=== PATIENT | female | born 1960 | race Caucasian/White ===

== ENCOUNTER 2019-08-11 16:56 | Inpatient (IN) ==
[2019-08-11] MEDS ORDERED: TYLENOL PO ONE (17:32)
--- NOTE | 2019-08-11 17:41 | EKG Report ---
Test Performed on : 08/11/2019 5:05:24 PM Test Reason : headache Blood Pressure : / mmHG Vent. Rate : 085 BPM Atrial Rate : 085 BPM P-R Int : 156 ms QRS Dur : 068 ms QT Int : 362 ms P-R-T Axes : 045 -08 013 degrees QTc Int : 430 ms Normal sinus rhythm. Low voltage QRS Borderline ECG No previous ECGs available Unconfirmed Result
--- NOTE | 2019-08-11 17:46 | PROVIDER DOCUMENTATION ---
HPI-General Adult - General Chief Complaint: Headache Stated Complaint: HEADACHE RASH Time Seen by Provider: 08/11/19 17:09 Source: patient Allergies/Adverse Reactions: Patient Allergies Allergy/AdvReac Type Severity Reaction Status Date / Time Sulfa (Sulfonamide Allergy HIVES Verified 08/11/19 17:56 Antibiotics) Home Medications: Home Medication List Medication Instructions Recorded Confirmed Last Taken Type Atenolol 1 tab PO DAILY 08/11/19 08/11/19 08/11/19 History Dulaglutide [Trulicity] 1.5 mg SQ DIRECTED 08/11/19 08/11/19 08/04/19 History Estradiol [Estrace] 1 tab PO DAILY 08/11/19 08/11/19 08/11/19 History Lisinopril/Hydrochlorothiazide 1 tab PO DAILY 08/11/19 08/11/19 08/11/19 History [Lisinopril-Hctz 10-12.5 mg Tab] Metformin [Glucophage] 1 tab PO BID 08/11/19 08/11/19 08/11/19 History - History of Present Illness -Gen Adult Nature of Presenting Problems: pt 59 yo WF w PMH including HTN, DM2, presents today with C/o severe GARCIA w intermittent dizziness x 2 weeks, pt also C/O intermittent fever with neck stiffness with rotation but not flexion, pt also c/o painful erythematous macular rash on bilateral hands onset 3 days ago. pt states GARCIA radiates from frontal area to occipital area and down through neck. pt reports palpitations and mild dyspnea last night. pt reports dizziness severe enough to cause loss of balance and fall. Location of Pain/Injury: reports: head (see hpi), hand(s) (bilater rash onset 3 days ago), other Pain Radiation: reports: neck Quality of Pain: reports: aching, sharp Severity: reports: severe (at worse severe, mild at this time) Onset/Duration: reports: other (see hpi) Timing: reports: still present, intermittent Context/Activities at Onset: reports: none, light activity Modifying Factors: improves with: analgesics (some relief with nsaids over past 2 weeks,), movement (hands worse with movment and palpation) Associated Symptoms: reports: back/neck pain, dizziness, fatigue, fever/chills, headaches, joint pain (in hands), rash (painful rash on bilat hands.), weakness Similar Symptoms Previously?: No Recently seen or treated by another doctor?: No Review of Systems - Adult - REVIEW OF SYSTEMS - ADULT Constitutional: reports: see HPI, fever, fatique Eyes: reports: see HPI, other (conjuntival injection onset today) Ears, Nose, Mouth & Throat: reports: no symptoms reported Cardiovascular: reports: irregular heart rate (had episode of palpitations last night) Respiratory: reports: no symptoms reported Gastrointestinal: reports: no symptoms reported Genitourinary: reports: no symptoms reported Musculoskeletal: reports: see HPI Integumentary: reports: see HPI Psychiatric: reports: no symptoms reported Endocrine: reports: no symptoms reported Hematologic/Lymphatic: reports: no symptoms reported Allergic/Immunologic: reports: see HPI All Other Systems: Reviewed and Negative Past History - Adult - PAST MEDICAL HISTORY-ADULT Review of Records: reports: Old Records Reviewed, Nursing Assessment Review, Me dications Reviewed Major Childhood Illnesses: reports: denies history Cardiovascular: reports: HTN Respiratory: reports: denies history Gastrointestinal: reports: denies history Musculoskeletal: reports: arthritis Neurological: reports: denies history Endocrine/Immune: reports: denies history Diabetes Type: Type 2 Diabetes controlled by:: PO Meds (and trulicity) Other Conditions: reports: denies history - FAMILY HISTORY Family History: reviewed, not pertinent - SOCIAL HISTORY Smoking: denies Substance Use: none/never Alcohol Use Frequency: never Living Situation: family Physical Exam-General - PHYSICAL EXAM-ADULT Initial Vital Signs Reviewed: Yes - CONSTITUTIONAL General Appearance: appears well, alert, mild distress - EYES Eyes: PERRL/EOMI, sclera injected. negative: EOM palsy, meningismus - HEAD, EARS, NOSE, MOUTH & THROAT HENMT: normocephalic/atraumatic, moist mucous membranes, normal ENT inspection - NECK Neck: C-spine tenderness, limited range of motion (limited rotation due to pain, no pain with flexion). 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 negative: facial droop, focal weakness, motor weakness, sensory deficit - PSYCHIATRIC Psych/Mental Status: normal mood/affect, normal thought content, normal thought process, oriented x 3 Progress - PLAN OF CARE/RESULTS Progress/Plan/Lab Results: Vital Signs - 8 hr 08/11/19 16:59 Temperature 99.4 F Pulse Rate 121 H Respiratory Rate 18 Blood Pressure 154/88 O2 Sat by Pulse Oximetry 96 Orders Category Date Time Status Saline Loc NOW Care 08/11/19 17:[address] HEAD W/O CONTRAST [CT] Stat Exams 08/11/19 17:22 Ordered BLOOD CULTURE [BLDCUL] Stat Lab 08/11/19 17:29 Uncollected CBC WITH ELECTRONIC DIFF [HEME] Stat Lab 08/11/19 17:22 Uncollected COMPREHENSIVE METABOLIC PANEL [CHEM] Stat Lab 08/11/19 17:22 Uncollected LACTATE, PLASMA [CHEM] Stat Lab 08/11/19 17:29 Uncollected PT [PROTIME WITH INR] [COAG] Stat Lab 08/11/19 17:33 Uncollected TROPONIN T Stat Lab 08/11/19 17:22 Uncollected Acetaminophen [Tylenol] Med 08/11/19 17:32 Discontinued 1,000 mg PO NOW ONE EKG [EKG] Stat Ther 08/11/19 17:06 Ordered Result Diagrams: 08/11/19 18:10 08/11/19 18:10 - REASSESSMENT Reassessment #1 Status: unchanged Reassessment #2 Time Reassessed: 21:10 Status: improving (movement of the head reveals no nuchal regidity. She is tender at the OA joint bilat) Reassessment #3 Time Reassessed: 23:48 Status: unchanged (still has neck pain) - EKG 1 Time of EKG reading by physician:: 17:05 EKG Read and Signed by:: Geoff Ernandez EKG Interpretation (*Must complete 3 of following elements*): Normal Rate: 85 Rhythm: nsr [place]: normal QRS: normal, other (low voltage QRS) [place] Interval: normal ST Wave: normal - CT/MRI 1 CT Study: Head Impression: Normal - CONSULTS/PCP/HOSPITALIST Notification #1 *Consult/PCP/Hospitalist*: Dr Soto Time Discussed: 00:25 Consult Disposition: Will see in ED - CHANGE OF SHIFT REPORT (ED Provider) 1 Report Given and Care Transferred to:: Dr jarrett Time of Transfer: 21:40 Items Pending: Other (spinal tap results) Departure - Departure Date of Disposition Decision: 08/11/19 Time of Disposition Decision: 00:26 DIAGNOSIS: Intractable headache Qualifiers: Headache type: unspecified Headache chronicity pattern: acute headache Qualified Code(s): R51 - Headache Disposition: ADMITTED INPATIENT 09 Certified Medical Emergency: Emergent Condition: Stable Referrals and Follow-Ups: Thaddeus Appiah MD [Primary Care Provider] - Discharge Education: Migraine Headache, [id number] - Critical Care Note This patient required my direct & personal management of CC.: No Attestation - Physician/ BURT Attestation Patient care was provided by Advanced Practice Provider:: Yes Advanced Practice Provider:: Jay Pal Advanced Practice Provider documentation review:: The Mid-level provider documentation, treatment plan and medical decision making was reviewed by the physician who agrees with all treatment and medical decision making by the MLP. The physician spent face to face time with patient:: Yes (report given to Dr jarrett at end of shift) Advanced Practice Provider documentation review:: Supervising physician onsite and consulted in the evaluation and care of this patient. The physician did have a face to face encounter with the patient.
[2019-08-11 18:24] LABS: BASO# 0.01 X1000 (0.0-0.2); BASO% 0.1 % (0.0-0.8); HEMATOCRIT 39.3 % (37.0-47.0); HEMOGLOBIN 13.3 g/dL (12.0-16.0); IMM GRAN# 0.05 X1000 (0.0-0.04); IMM GRAN% 0.5 % (0.0-0.5); LYMPH% 21.5 % (20.5-51.1); MCH 30.9 PG (27-31); MCHC 33.8 g/dL (33-37); MCV 91.2 FL (81-99); MONO# 1.09 X1000 (0.11-0.59); MONO% 10.6 % (1.7-9.3); MPV 10.8 FL (7.4-10.4); NEUT# 6.79 X1000 (1.4-6.5); NEUT% 66.3 % (42.2-75.2); PLT 210 X1000 (130-400); RBC 4.31 XMIL (4.2-5.4); RDW 12.4 % (11.5-14.5); WBC 10.24 X1000 (4.8-10.8)
[2019-08-11 18:35] LABS: INR 0.96; PROTIME 12.9 Seconds (11.0-16.0)
[2019-08-11 18:40] LABS: AGAP 14; ALB/GLOB RATIO 1.4; ALKALINE PHOSPHATASE 86 U/L (32-104); BUN 17 mg/dL (8-22); CALCIUM 9.3 mg/dL (8.8-10.2); CHLORIDE 96 mmol/L (98-107); COSMO 281; CREATININE 0.8 mg/dL (0.5-0.9); ESTIMATED GFR > 60; GLUCOSE 162 mg/dL (70-104); GOT 18 U/L (10-30); GPT 16 U/L (10-36); POTASSIUM 3.3 mmol/L (3.5-5.1); SODIUM 138 mmol/L (136-145); TCO2 28 mmol/L (25-35); TOTAL BILIRUBIN 0.55 mg/dL (0.20-1.00); TOTAL PROTEIN 6.8 g/dL (6.3-8.3)
--- NOTE | 2019-08-11 18:41 | Diag Imaging Result Doc PS360 ---
CT HEAD W/O CONTRAST - 08/11/2019 INDICATION: dizziness/ severe GARCIA COMPARISON: None FINDINGS: The ventricles and sulci are normal in size and contour. No intracranial mass or hemorrhage. The skull is intact. The sinuses mastoids and middle ears are clear. IMPRESSION: Negative exam. This exam was performed using automated exposure control, adjustment of mA or kV according to patient size, and/or use of iterative reconstruction technique Electronically signed by Emil Roth 08/11/2019 6:38 PM
[2019-08-11] MEDS ORDERED: KLOR-CON PO ONE (19:33)
[2019-08-11] MEDS ORDERED: XYLOCAINE-MPF 1% 10 ML ONE (21:09)
[2019-08-11] MEDS ORDERED: VERSED IV ONE (21:10)
[2019-08-11] MEDS ORDERED: XYLOCAINE 1% ONE (22:07)
[2019-08-11] MEDS ORDERED: XYLOCAINE 1% INJ ONE (22:15)
[2019-08-11] MEDS ORDERED: TORADOL IV ONE (22:16)
[2019-08-11] MEDS ORDERED: DEMEROL IV ONE (23:50)
[2019-08-12] MEDS ORDERED: NS 1,000 ML IV SCH (01:15)
[2019-08-12] MEDS ORDERED: KLOR-CON PO ONE (05:43)
--- NOTE | 2019-08-12 06:02 | HISTORY AND PHYSICAL ---
CHIEF COMPLAINT: Headaches for about 2 weeks. HISTORY OF PRESENT ILLNESS: Ms. Thu Galdamez is a 59-year-old female, who has a history of hypertension, as well as diabetes. She presented to the hospital because of headaches which she has been having for about 2 weeks. She describes the headaches as localized mainly in the yazidism region bilaterally and radiating to the occipital area. The pain is constant and usually improved with pain medication. She has had associated fever. She also describes a rash involving both upper as well as lower extremities associated with redness in both eyes. She did not have any loss of consciousness. She did have a CT scan of the brain done at the time of presentation which was unremarkable for any acute lesions. The patient has now been admitted to the floor for further management. PAST MEDICAL HISTORY: Significant for hypertension as well as diabetes. SOCIAL HISTORY: No history of cigarette smoking. No alcohol or drug use. ALLERGIES: She is allergic to sulfa. FAMILY HISTORY: Positive for diabetes. PAST SURGICAL HISTORY: She has had section, left groin hernia repair, sinus surgery, ear surgery, as well as hysterectomy. MEDICATIONS: Medications include the following. Atenolol 50 mg p.o. daily. Dulaglutide t.i.d. 1.5 mg subcu dose as directed. Estradiol 1 mg daily. Lisinopril/HCT 10/12.5 daily. Metformin 500 mg p.o. twice a day. REVIEW OF SYSTEMS: Constitutional: Has fever. GANG SAWYER: Headaches. Eyes: No blurred vision. Ears, nose, and throat: She does have some nasal discharge . Cardiovascular: Chest pain. Respiratory: No cough. GI: No nausea, vomiting, or abdominal pain. : Has dysuria. Dermatology: Has skin rash. Muscular: Has joint pains. Psychiatric: No anxiety or depression. Endocrinology: Has diabetes. No thyroid disease. Allergy/Immunology: She does have sneezing. PHYSICAL EXAMINATION: VITAL SIGNS: Temperature is 97.7 degrees, pulse 64, respiratory rate 14, blood pressure 134/74, oxygen saturation 99%. HEENT: She is atraumatic, normocephalic. Pupils are poorly reactive to light. She has evidence of conjunctival inflammation in both eyes. Extraocular movements intact. No oral lesions. NECK: No lymphadenopathy or thyromegaly. CARDIOVASCULAR: S1, S2. RESPIRATORY SYSTEM: Has evidence of good air entry bilaterally. ABDOMEN: Soft, nontender. No masses felt. EXTREMITIES: No evidence of edema. CENTRAL NERVOUS SYSTEM: No obvious focal deficits noted. DERMATOLOGY: She does have erythematous lesions, mainly involving both hands and also sparsely involving both lower extremities. DIAGNOSTIC DATA: WBC 10.24, hematocrit is 39.3 with a platelet count of 210,000. INR is 0.96. Sodium is 138, potassium 3.3, chloride is 96, bicarb 28, BUN is 7 creatinine 0.8, glucose 162. CT scan of the brain unremarkable. ASSESSMENT AND PLAN: 1. Probable viral infection. Patient presenting with headaches, fever, rash, along with conjunctivitis. Will treat symptomatically. Will also request getting a spinal tap to rule out possible meningitis and consult with Infectious Disease. 2. Diabetes mellitus. Monitor blood sugar levels. Maintain patient on sliding scale insulin. Check hemoglobin A1c. 3. Hypertension. Continue current antihypertensive regimen. 4. Hypokalemia. Replace potassium. Check magnesium level. 5. Deep vein thrombosis prophylaxis. Sequential compression devices. 6. Gastrointestinal prophylaxis. Proton pump inhibitor. cc: Lukas Soto MD MTDD
[2019-08-12] MEDS: TYLENOL PO PRN ×3 (06:16→18:54)
[2019-08-12] MEDS: NS 1,000 ML IV SCH (06:16)
[2019-08-12] MEDS: HUMULIN R SUBQ SCH ×3 (06:40→17:11)
--- NOTE | 2019-08-12 07:59 | INFECTIOUS DISEASE CONSULT REP ---
DATE: 08/12/2019 CONCLUSION: The patient was admitted to the hospital with very painful macular papular lesions involving her arms and legs. I think she may have [id number] disease caused by Coxsackie virus or an enterovirus. RECOMMENDATIONS: I would like to go ahead and have the patient get a spinal tap. It was attempted in the emergency room and no fluid was obtained. I called down to Radiology and asked for the tractor trailer technician who answered the phone to call the radiologist, Dr. Roth, non licensed operator to see if he would come in and do the spinal tap. Pending that result, I have started the patient on Valtrex. Some side effects of the medication, including renal toxicity and hematocrit toxicity, have been explained to the patient who agrees with treatment. DISCUSSION: The patient tells me approximately 2 weeks ago she started having headaches that started in the gnosticist area and then spread over the top of her head and down the back of her head and into her neck. She also had fever and chills. Approximately 5 days ago, she developed very painful erythematous macules and papules. The patient also has erythema involving the sclera and conjunctiva. She is able to see out of her eye well. LABORATORY STUDIES: Thus far show a CBC with a white count of 10,240, hemoglobin 13.3, and platelet count 210,000. Creatinine is 0.8. GFR is greater than 60. Liver function studies are normal. Blood cultures are pending. IMAGING STUDIES: The patient's CT scan of the head showed no abnormalities. PAST MEDICAL HISTORY/REVIEW OF SYSTEMS: Eyes: See present illness. Ears: The patient's hearing is good. Neck: See present illness. Respiratory: No cough or shortness of breath. Cardiac: No chest pain or palpitations. GI: No nausea, vomiting, or diarrhea. : No dysuria or flank pain. Bones, joints and muscles: Patient tells me for 8 to 10 years she has been having joint pains, primarily in the knees and hands. Neurologic: No seizures. No loss of motor or sensory function. PATENT DRAFTER: She is a 2, para 2, AB 0. She delivered both of her children by . She has had a hysterectomy. PREVIOUS HOSPITALIZATIONS AND OPERATIONS: She has had 2 C-sections, a hysterectomy, a hernia repair, sinus surgery and ear surgery. MEDICAL DISEASES: Positive for diabetes mellitus and hypertension. INFECTIOUS DISEASE HISTORY: Positive for urinary tract infection. Negative for pneumonia. SOCIAL HISTORY[place] . They do not have any pets at home. She does not smoke. She does not drink alcoholic beverages and she does not use illicit drugs. ALLERGIES: She has an allergy to sulfa, which is manifested by hives. MEDICATIONS: Patient's home medications include: Atenolol, Trulicity, Estrace, lisinopril/hydrochlorothiazide and metformin. PHYSICAL EXAMINATION: Vital Signs: Temperature is 97.7 degrees, pulse 64, respirations 14, blood pressure 135/74. The patient weighs 165 pounds. General: This is an obese, middle-aged female. She does have a lot of pain where she has her macular papular lesions. They are very painful. Head, eyes, ears, nose and throat: She can hear my spoken words and see near objects. I did not notice any erythematous areas or ulcerated areas or white patches in her mouth. Neck: No meningismus, but the patient does tell me when she has a severe headache then it causes her pain to move her neck. Lungs: Clear to auscultation. Cardiovascular: Heart rate is regular. Abdomen: Soft and nontender. Neurologic: The patient is awake. She can move her extremities. There is no tremor. Her memory as regarding her medical history is intact. Integument: The patient has tender macular papular rashes on her arms and legs. Thank you for the consult. ADDENDUM: Dr. Roth was contacted and said he would do the LP tomorrow. cc: MD MORTEZA Camacho
[2019-08-12] MEDS: PRINZIDE 10/12.5MG PO SCH (10:08)
[2019-08-12] MEDS: TENORMIN PO SCH (10:09)
[2019-08-12] MEDS: VALTREX PO SCH ×2 (10:14→17:10)
[2019-08-12] MEDS: PRILOSEC PO SCH (10:14)
--- NOTE | 2019-08-12 10:17 | Diag Imaging Result Doc PS360 ---
CHEST-2 VIEWS - 08/12/2019 INDICATION: pneumonia COMPARISON: None FINDINGS: The lungs are normally expanded and clear. Heart size and mediastinal contours are normal. No pneumothorax or pleural effusion. IMPRESSION: Negative exam. Electronically signed by Emil Roth 08/12/2019 10:14 AM
--- NOTE | 2019-08-12 13:20 | PROGRESS NOTE ---
DATE: 08/12/2019 Brief Progress Note: The patient's headache is still present, but improved. No further fevers. Still with odd rash, worse on the fingers, but some on the legs, trunk, and back. The newer lesions on the legs and trunk are pink and macular. The older lesions on the hands are more raised, and some with a little bit of central duskiness. Most of them are tender. Still some conjunctival injection, but no real drainage from the eyes. ID has seen the patient and placed her on valacyclovir. The patient is pending LP in the morning to rule out meningitis. I am not entirely sure what to make of this rash. If it worsens, may eventually need biopsy. Will monitor blood pressure and diabetes. The patient's low potassium has been repleted. Will repeat in the morning. MTDD
[2019-08-12] MEDS: ULTRAM PO PRN (20:05)
[2019-08-13] MEDS: NS 1,000 ML IV SCH ×2 (00:20→08:18)
[2019-08-13] MEDS: HUMULIN R SUBQ SCH ×5 (00:23→21:49)
[2019-08-13] MEDS: VALTREX PO SCH ×3 (00:23→18:23)
[2019-08-13] MEDS: ULTRAM PO PRN ×3 (02:12→23:01)
[2019-08-13] MEDS: PRILOSEC PO SCH (06:11)
[2019-08-13 07:44] LABS: HEMOGLOBIN A1C 6.5 % (4.8-6.0)
[2019-08-13 08:01] LABS: AGAP 13; BUN 14 mg/dL (8-22); CALCIUM 8.2 mg/dL (8.8-10.2); CHLORIDE 103 mmol/L (98-107); COSMO 280; CREATININE 0.6 mg/dL (0.5-0.9); ESTIMATED GFR > 60; GLUCOSE 171 mg/dL (70-104); POTASSIUM 3.9 mmol/L (3.5-5.1); SODIUM 138 mmol/L (136-145); TCO2 22 mmol/L (25-35)
[2019-08-13] MEDS: TENORMIN PO SCH (08:18)
[2019-08-13] MEDS: TYLENOL PO PRN (08:18)
[2019-08-13] MEDS: PRINZIDE 10/12.5MG PO SCH (08:18)
[2019-08-13 08:44] LABS: BASO# 0.02 X1000 (0.0-0.2); BASO% 0.3 % (0.0-0.8); EOS# 0.06 X1000 (0.0-0.7); EOS% 0.8 % (0.0-10.0); HEMATOCRIT 35.5 % (37.0-47.0); IMM GRAN# 0.02 X1000 (0.0-0.04); IMM GRAN% 0.3 % (0.0-0.5); LYMPH# 1.79 X1000 (1.2-3.4); LYMPH% 24.4 % (20.5-51.1); MCH 31.1 PG (27-31); MCHC 33.8 g/dL (33-37); MONO% 8.2 % (1.7-9.3); MPV 10.8 FL (7.4-10.4); NEUT# 4.84 X1000 (1.4-6.5); PLT 198 X1000 (130-400); RBC 3.86 XMIL (4.2-5.4); RDW 12.4 % (11.5-14.5); WBC 7.33 X1000 (4.8-10.8)
[2019-08-13] MEDS ORDERED: ZOFRAN IV PRN (11:12)
--- NOTE | 2019-08-13 11:46 | Diag Imaging Result Doc PS360 ---
LUMBAR PUNCT W/FLURO GUIDE - 08/13/2019 INDICATION: r/o meningitis TECHNIQUE: Total fluoroscopy time was 45 seconds. Four images were obtained. COMPARISON: None FINDINGS: Puncture was performed at L3-L4. The opening pressure was about eight. The tapped was traumatic, with a good amount of blood in the first vial. The remaining vials became progressively more clear. IMPRESSION: Successful and uncomplicated fluoroscopic guided lumbar puncture. Please note that the tap was traumatic and there is some bleeding. Electronically signed by Emil Roth 08/13/2019 11:43 AM
[2019-08-13 12:53] LABS: GLUCOSE CSF 94 mg/dL (39-75)
[2019-08-13 12:56] LABS: PROTEIN CSF 75.9 mg/dL (15-45)
[2019-08-13 14:43] LABS: APPEARANCE CLEAR; RBC BF 439 /cumm; WBC BF 32 /cumm
[2019-08-13 15:28] LABS: MONOS 91 %; POLYS 9 %
[2019-08-13] MEDS ORDERED: FIORICET PO ONE (15:34)
--- NOTE | 2019-08-13 17:11 | INFECTIOUS DISEASE PROGRESS NO ---
DATE: 08/13/2019 PRESENT ILLNESS: I think the patient has a viral infection. It could well be due to hand-foot- mouth disease which can be caused by a Coxsackie virus or an enteral virus. MEDICATIONS: The patient yesterday was started on Valtrex. PHYSICAL EXAMINATION: Vital Signs: Temperature is 98 degrees, pulse 58, respirations 16, blood pressure is 136/78. The patient states and her also states that she has gotten much better since starting the Valtrex yesterday. The patient and her both state that the erythematous macules and papules are since yesterday much smaller, much less red and much less tender. The patient states yesterday she could barely move her hands and now today she is able to move them. Head/eyes/ears/nose/throat: She can hear my spoken words and see near objects. The conjunctiva is less erythematous today. Neck: No meningismus. Lungs: Clear to auscultation. Cardiovascular: Regular heart rate. Abdomen: Soft and nontender. Integument: The patient's rash as mentioned above, is less erythematous. It is smaller in size and much less tender. Neurologic: The patient is alert. She can move her extremities. Her memory is intact. LAB AND X-RAY: The chest x-ray is clear. CBC shows a white blood cell count of 7330, hemoglobin 12, platelet count 198,000. Creatinine is 0.6, GFR is greater than 60. Today the patient had a lumbar puncture done in radiology. Some of the results of the spinal fluid are back. The white blood cell count was 32. The red blood cell count was 439. Glucose is 94 and protein is 76. Gram stain on the spinal fluid showed no bacteria. The radiologist did say in doing the spinal tap that it was a traumatic tap and blood was in the spinal fluid. ASSESSMENT AND PLAN: I think the patient definitely has a viral infection. It could well be hand- foot-mouth disease. I think since the patient's Valtrex seems to be helping her quite a bit, that I am going to continue giving her Valtrex 1 g p.o. every 8 hours. Some of the side effects of the antibiotic including the metal toxicity and renal toxicity were explained to the patient yesterday and she and her agreed with treatment with it. I think the patient tomorrow could go home and rest for a few days. 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 I have requested that the patient have a CBC and creatinine done 1 week after discharge and then have an appointment at my office 2 weeks after discharge. At the 2 week discharge also I think another CBC and creatinine should be obtained. 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 cc: Venkat Hamilton MD
--- NOTE | 2019-08-13 18:03 | PROGRESS NOTE ---
DATE: 08/13/2019 INTERVAL HISTORY: No acute events overnight. SUBJECTIVE: Ms. Galdamez is significantly feeling better. She denies any chest pain, shortness of breath, or cough. Her is at bedside. She is only complaining of some sinus congestion and drainage. We discussed about hand-foot mouth disease. We discussed about viral meningitis. We discussed about melanoma. VITALS: Currently temperature 98.1 degrees, pulse 60, respiratory rate 16, blood pressure 120/60. Saturating 100% on room air. PHYSICAL EXAMINATION: General: Not in acute distress. HEENT: Oral cavity is moist. No pharyngeal congestion. Lungs: Air entry bilaterally equal. No wheeze or rhonchi, Cardiac: S1, S2 normal. No murmur, gallop. Abdomen: Soft, nontender. Extremity: No lower extremity edema. Central Nervous System: She is alert and oriented x3. Her right ear canal examination does not have any impacted wax. Her tympanic membrane was seen with good light reflex. She does have a macular and patchy rash affecting bilateral hands, medial thigh, which is not itchy. LABORATORY DATA: CBC is unremarkable. BMP is unremarkable. Her lumbar puncture study has 32 WBC with 91% mononuclear cells. This could indicate meningeal inflammation with viruses. However, it also had 439 RBCs making interpretation difficult. Microbiology, CSF Gram stain was negative. Culture was pending. ASSESSMENT AND PLAN: 1. Intractable headache and bilateral hand and legs rash. This could be [id number] disease caused by Coxsackie virus. The patient has been started on valacyclovir and had significant improvement. Appreciate Infectious Disease recommendation about possible discharge in next 24 hours on valacyclovir though CSF has mononuclear pleocytosis and high protein which could potentially indicate a viral induced aseptic meningitis. It also had multiple RBCs making interpretation difficult. She did not have any elevated intracranial pressure while performing a lumbar puncture 2. Intractable headache, currently getting better. She will continue as needed acetaminophen and as needed tramadol. Occasionally, she states she has a rumbling sound in the right ear. I discussed with her about possibility of glomus tumor. Outpatient ENT follow-up considering she previously had an ENT surgery. She asked if she could get an MRI and I suggested that I would monitor her over the evening and if she continues to have headache tomorrow, I will consider getting one. Otherwise, she could see her ENT physician outpatient. DISPOSITION: I am anticipating discharge in 24 hours. Plan of care discussed with the patient and her at bedside. I also looked at benign appearing nevus in bilateral sole and on the right breast and I discussed with the patient and her about getting outpatient evaluation. cc: Shantanu Bernal MD
[2019-08-14] MEDS: VALTREX PO SCH ×3 (00:06→16:53)
[2019-08-14] MEDS: ULTRAM PO PRN (04:24)
[2019-08-14] MEDS: HUMULIN R SUBQ SCH ×3 (06:33→16:52)
[2019-08-14] MEDS: PRILOSEC PO SCH (06:33)
[2019-08-14 07:45] LABS: BASO# 0.03 X1000 (0.0-0.2); BASO% 0.4 % (0.0-0.8); EOS# 0.17 X1000 (0.0-0.7); HEMATOCRIT 36.3 % (37.0-47.0); HEMOGLOBIN 12.2 g/dL (12.0-16.0); IMM GRAN# 0.04 X1000 (0.0-0.04); IMM GRAN% 0.5 % (0.0-0.5); LYMPH# 1.87 X1000 (1.2-3.4); LYMPH% 22.4 % (20.5-51.1); MCH 30.7 PG (27-31); MCHC 33.6 g/dL (33-37); MCV 91.4 FL (81-99); MONO# 0.73 X1000 (0.11-0.59); MONO% 8.8 % (1.7-9.3); MPV 10.3 FL (7.4-10.4); NEUT% 65.9 % (42.2-75.2); PLT 205 X1000 (130-400); RBC 3.97 XMIL (4.2-5.4); RDW 12.2 % (11.5-14.5); WBC 8.34 X1000 (4.8-10.8)
[2019-08-14 07:55] LABS: AGAP 11; BUN 12 mg/dL (8-22); CALCIUM 8.2 mg/dL (8.8-10.2); CHLORIDE 105 mmol/L (98-107); COSMO 285; CREATININE 0.6 mg/dL (0.5-0.9); ESTIMATED GFR > 60; GLUCOSE 139 mg/dL (70-104); POTASSIUM 3.7 mmol/L (3.5-5.1); SODIUM 142 mmol/L (136-145); TCO2 26 mmol/L (25-35)
[2019-08-14] MEDS: TYLENOL PO PRN ×2 (08:55→15:35)
[2019-08-14] MEDS: PRINZIDE 10/12.5MG PO SCH (08:56)
[2019-08-14] MEDS: TENORMIN PO SCH (08:56)
--- NOTE | 2019-08-14 12:39 | INFECTIOUS DISEASE PROGRESS NO ---
DATE: 08/14/2019 PRESENT ILLNESS: I think the patient has a viral infection, specifically the one I think she has is vjjr-afat-iuvrb disease due to a Coxsackie virus. MEDICATIONS: The patient has been started on Valtrex. PHYSICAL EXAMINATION: Vital Signs: Temperature is 98.4 degrees, pulse 73, respirations 16, blood pressure 127/66. General: This is a somewhat ill-appearing, middle-aged female. She is in no acute distress. Overall she looks much better than when she came in the hospital. Head/eyes/ears/nose/throat: She can hear my spoken words and see near objects. I looked into her left ear, which she said was hurting her. There was no erythema in the canal. The patient's ear drum had a light reflex on it. The frontal and maxillary sinuses were not tender. Also, the mastoid sinuses were not tender either, and the skin over them what was not erythematous. Neck: The patient's neck is supple. She can move it without having pain. Lungs: Clear to auscultation. Cardiovascular: Heart rate is regular. Abdomen: Soft and nontender. Integument: Almost all the red macular papular lesions have cleared. Neurologic: The patient is alert. She talks in a coherent fashion. She can move her extremities. There is no tremor. LAB AND X-RAY: There is no new radiographic study. CBC shows a white count of 8340, hemoglobin 12.2, and platelet count 205,000. Creatinine is 0.6. GFR is greater than 60. The patient's meningitis/encephalitis panel on the spinal fluid was completely negative. ASSESSMENT AND PLAN: The patient has in my opinion a viral infection, most likely due to hand- foot-mouth disease. The patient drives a school bus, and she said that there is an outbreak of what sounds like [id number] disease at the school that she drives the bus for. She easily could have become infected from the children. The patient seemed to get dramatically better when I started her on Valtrex, so I plan to continue with it. She has got a 2-week supply. In a week from her discharge, we are going to get a CBC and a creatinine, and tentatively we have the patient scheduled to come to my office in 2 weeks. I told her that if her illness is almost completely gone, she can cancel the appointment. COMORBIDITIES: The main one is that she is drives a school bus, and unfortunately she can get infections that the school children get quite readily. The patient also is a diabetic. cc: Venkat Hamilton MD
[2019-08-14 16:22] VITALS: BP 120/67
--- NOTE | 2019-08-15 15:49 | DISCHARGE SUMMARY ---
ADMISSION DATE: 08/11/2019 DISCHARGE DATE: 08/14/2019 DISCHARGE DIAGNOSES: 1. Iedy-govs-eebam disease. 2. Diabetes mellitus type 2. 3. Hypertension. 4. Hypokalemia. CONSULTATIONS: Dr. Venkat Hamilton from Infectious Disease. PROCEDURES: 1. Head CT done on admission showed negative exam. 2. Chest x-ray showed negative exam. 3. Lumbar puncture fluoroscopy. HOSPITAL COURSE: This is a 59-year-old female who has history of hypertension and diabetes who presented to the emergency department complaining of headaches which she has been having that were getting progressively worse, mostly in the occipital area so she was admitted to the hospital. CT of the head were normal. We thought that it could be a probable viral infection. We consulted Dr. Hamilton from Infectious Disease. He thought that this patient had vvap-cjca-xbieo syndrome. We did a lumbar puncture which basically showed signs of viral infection, so she was started on valacyclovir and she showed good improvement. At this time, patient is stable, definitely much better in terms of headaches and we decided to send this patient to go home. Patient reports she is much better. She is supposed to complete 2 weeks of this medication. She is supposed to be seen by Dr. Venkat Hamilton in the office. The patient is being discharged in stable condition. DISCHARGE PHYSICAL EXAMINATION: Temperature 98.4 degrees, heart rate 67, respiratory rate 20, blood pressure 120/67, O2 saturation 98% on room air. General: This is a 59-year-old female lying in bed, in no acute distress. Cardiovascular: S1, S2 heard. No murmurs, gallops, or rubs. Regular rate and rhythm. Respiratory: Clear bilaterally to auscultation. No work of breathing or using accessory muscles. Abdomen: Soft. Nontender to palpation. No organomegaly noted. Extremities: No clubbing, cyanosis, or edema. Peripheral pulses present in both legs. Neurological: The patient alert and oriented x3. Moves 4 extremities. DISCHARGE DISPOSITION: Home to self-care. LIST OF MEDICATIONS: 1. Valacyclovir 1000 mg p.o. 8 hours for a couple weeks. 2. Tramadol 50 mg 1 tablet p.o. every 4 hours as needed for pain. 3. Atenolol 50 mg 1 tablet p.o. daily. 4. Trulicity 1.5 mg subcutaneous as directed. 5. Estradiol 1 tablet p.o. daily. 6. Lisinopril/hydrochlorothiazide 10/12.5, 1 tablet p.o. daily. 7. Metformin one tablet p.o. twice daily. FOLLOW UP. With Dr. Venkat Hamilton in a couple weeks. cc: Jim Cohen MD MTDD
== END 2019-08-14 18:51 | disposition home or self-care (01) ==
LOC: ED 16:56 → 3N 16:57 → SUATTDRO 16:57
PROVIDERS: ATTEND Internal Medicine